=== PATIENT | female | born 1985 | race Caucasian/White ===

== ENCOUNTER 2022-12-15 10:27 | Outpatient (CLI) | payer OTHER, SELFPAY ==
--- NOTE | 2022-12-15 10:43 | XRR_ITS ---
PROCEDURE INFORMATION: Exam: XR Right Scapula Exam date and time: 12/15/2022 10:45 AM Age: 37 years old Clinical indication: Pain; Shoulder; Right; Additional info: Shoulder pain, crepitus TECHNIQUE: Imaging protocol: Radiologic exam of the Right scapula. Complete exam. COMPARISON: No relevant prior studies available. FINDINGS: Bones/joints: Normal. Soft tissues: Normal. XR/[place] [id number] IMPRESSION: No acute findings.
--- NOTE | 2022-12-15 10:43 | XRR_ITS ---
PROCEDURE INFORMATION: Exam: XR Right Shoulder Exam date and time: 12/15/2022 10:45 AM Age: 37 years old Clinical indication: Pain; Shoulder; Right; Additional info: Shoulder pain, joint crepitus TECHNIQUE: Imaging protocol: Radiologic exam of the Right shoulder. Views: 2 or more views. COMPARISON: No relevant prior studies available. FINDINGS: Bones/joints: Normal. Soft tissues: Normal. XR/XR shoulder RT min 2V* [id number] IMPRESSION: No acute findings.
== END 2022-12-15 10:28 | disposition home or self-care (01) ==
LOC: RAD 10:35
PROVIDERS: PCP Nurse Practitioner Family; Visit Provider Nurse Practitioner Family
DX: M25.511 Pain in right shoulder (principal)
CPT/HCPCS: 73010; 73030

== ENCOUNTER 2023-02-27 07:10 | Outpatient (CLI) | payer OTHER, SELFPAY ==
--- NOTE | 2023-02-27 07:00 | MR_ITS ---
WS: [id number] MRI BRACHIAL PLEXUS, noncontrast CONTRAST. COMPARISON: None Multiplanar, multisequence imaging is performed without contrast. History: Shoulder pain, RIGHT. No soft tissue masses or signal abnormalities noted along the brachial plexus. Fat surrounding the br achial plexus is well preserved. There is no nerve root compression. Again noted is the central disc protrusion described at C5-6 on the cervical MRI report. No marrow edema or fractures are identified. The beginning of scoliosis noted within the upper thorac ic spine. There is symmetry of the shoulder muscles. No marrow edema and no muscle edema or atrophy. MR/MR brachialplexus wo con [id number] IMPRESSION: 1. Negative brachioplexus MRI. 2. Central disc protrusion at C5-6 is identified, previous the described on MR I cervical spine. Please refer to that report. 3. No muscle atrophy or edema.
--- NOTE | 2023-02-27 07:45 | MR_ITS ---
WS: [id number] MRI RIGHT SHOULDER HISTORY: RIGHT shoulder pain for 10 years. COMPARISON: Radiograph 12/15/2022. TECHNIQUE: Multiplanar sequences of the shoulder joint are submitted. Very mild AC joint arthropathy. Mild narrowing of the joint space with small amount of increased T2 s ignal along the acromioclavicular ligament. There is a small amount of fluid in the subacromial and s ubdeltoid bursa. Mild thickening of the capsule surrounding the AC joint. Mild subacromial impingemen t by an osteophyte on the supraspinatus. Biceps tendon normal position. No os acromion. Distal moderate distal supraspinatus tendinopathy. Extending to the distal articular surface of the s upraspinatus tendon is a short focal tear. No additional rotator cuff tendon tear. No muscle atrophy or edema. No labral tear. MR/MR shoulder RT wo con* [id number] IMPRESSION: 1. Mild AC joint arthritis. 2. Mild subacromial impingement. 3. Moderate distal supraspinatus tendinopathy. 4. Small articular surface supraspinatus tendon tear, distal.
--- NOTE | 2023-02-27 08:30 | MR_ITS ---
WS: [id number] MRI CERVICAL SPINE NONCONTRAST HISTORY: Shoulder pain, RIGHT deltoid pain. Injury 10 years ago. COMPARISON: CT 08/29/2011 Technique: Multiplanar, multisequence noncontrast imaging of the cervical spine. Straightening of the normal cervical lordosis. Reversal of lordosis at C5-6. There is very slight increased T2 signal within the cervical cord at C5-6 related to disc protrusion and retrolisthesis. Craniocervical junction, C1 and C2 relationship, odontoid process and soft tissues are normal. C2-C3: Normal. C3-C4: Mild osteophytic ridging. No stenosis. C4-C5: Normal. C5-C6: Asymmetric mild disc space narrowing. Focal moderate central to RIGHT paracentral disc protrus ion contacting and deforming the ventral cervical cord. Resulting in moderate central stenosis. Small er osteophyte or disc protrusion in the proximal LEFT foramen. Mild LEFT foraminal stenosis. Mild fac et arthropathy. C6-C7: Normal. C7-T1: Normal. Paraspinal soft tissue are normal. MR/MR cervical spin wo con* [id number] IMPRESSION: 1. Moderate central to RIGHT paracentral disc protrusion at C5-6 with contact and deformity of the ventral cervical cord with underlying myelomalacia. 2. Moderate central stenosis at C5-6 due to the disc protrusion with a smaller osteophyte versus disc protrusion in the proximal LEFT foramen. Mild LEFT fora minor stenosis. 3. Focal myelomalacia cervical cord at C5-6.
== END 2023-02-27 07:11 | disposition home or self-care (01) ==
LOC: RAD 07:11
PROVIDERS: PCP Nurse Practitioner Family; Visit Provider Psychiatry & Neurology Neurology
DX: G54.0 Brachial plexus disorders (principal); G62.89 Other specified polyneuropathies; M48.02 Spinal stenosis, cervical region; M75.41 Impingement syndrome of right shoulder
CPT/HCPCS: 71550; 72141; 73221

== ENCOUNTER → 2023-03-04 08:52 | Outpatient (BNVA) | payer OTHER, SELFPAY | PROVIDERS: PCP Nurse Practitioner Family; Visit Provider Physician Assistant | DX: M54.12 Radiculopathy, cervical region (principal) | CPT/HCPCS: 72050 ==

== ENCOUNTER → 2023-04-13 09:24 | Outpatient (BNVA) | payer OTHER, SELFPAY | PROVIDERS: PCP Nurse Practitioner Family; Visit Provider Orthopaedic Surgery | DX: Z01.818 Encounter for other preprocedural examination (principal) | CPT/HCPCS: 36415; 80053; 85025 ==

== ENCOUNTER → 2023-04-23 09:30 | Outpatient (BNVA) | payer OTHER, SELFPAY | PROVIDERS: PCP Nurse Practitioner Family; Visit Provider Clinical Nurse Specialist Adult Health | DX: M50.222 Other cervical disc displacement at C5-C6 level (principal) | CPT/HCPCS: 81000 ==

== ENCOUNTER 2023-04-30 05:54 | Day surgery (SDC) | payer OTHER, SELFPAY ==
[2023-04-29 09:09] VITALS: BMI 18.3
[2023-04-30] VITALS (9 sets, daily range): BP systolic 104–140; BP diastolic 46–77; PULSE 52–79; RESP 16–22; TEMP 36.4–37; O2SAT 97–100
--- NOTE | 2023-04-30 | XR_ITS ---
WS: [id number] Exam: XR cervical spine 3V* [id number] Date/Time of Exam: 04/30/2023 12:00 AM Reason For Exam: C5-6 ACDF AP and lateral C-arm images of the C-spine is submitted. Images obtained for intraoperative visualiza tion. Anterior screw fixation of C5 and 6 with disc spacer noted. ET tube noted.
[2023-04-30 06:13] LABS: OR HCG Qualitative Urine Negative (Negative)
[2023-04-30] MEDS: sodium chloride 0.9% 1,000 ML 30 ML IV (06:18)
--- NOTE | 2023-04-30 06:33 | ANES.PREANE2 ---
Pre-Anesthetic Assessment Height/Weight: Height 1.83 m Weight 61.235 kg Temp Pulse Resp BP Pulse Ox O2 Del Method 98.6 F 75 17 140/68 98 Room Air 04/30/23 06:08 04/30/23 06:08 04/30/23 06:08 04/30/23 06:08 04/30/23 06:08 04/30/23 06:09 Preop Diagnosis: Cervical radiculopathy Operation Date: 04/30/23 07:00 Proposed Procedures p C5-6 Anterior Cervical Discectomy & Fusion:[id number],85780,51240,M54.12,M75.41,M50.222(Not Applicable) - Steven Carbajal, Familial anesthetic complications: none Was Beta Laura taken within 24 hours: N/A Was Clonidine taken within 24 hours: N/A Last intake: Intake Last Liquid Date 04/29/23 Last Liquid Time 21:00 Last Solid Date 04/29/23 Last Solid Time 21:00 Social No alcohol and No tobacco Exam alert, oriented x 3, clear to auscultation bilaterally and regular rate & rhythm Airway Mallampati: Class I Dentition: full Anesthetic Plan ASA status: 1 Anesthesia: General Risk of > 500 ml blood loss (7ml/kg in children): No Medications/Allergies Home Medications Medication Instructions Recorded Confirmed Last Taken Type No Known Home Medications 12/30/22 04/30/23 Unknown History Allergies Allergy/AdvReac Type Severity Reaction Status Date / Time No Known Allergies Allergy Verified 04/30/23 06:06 Current Medications Generic Name Dose Route Start Last Admin Trade Name Freq PRN Reason Stop Dose Admin Sodium Chloride 1,000 mls @ 30 mls/hr 04/30/23 06:00 04/30/23 06:18 Sodium Chloride 0.9% IV 05/01/23 05:59 30 mls/hr .Q24H RYLAN Administration PFSH Anesthesia Medical History (Updated 04/23/23 @ 09:43 by Fredy Soto NP) No pertinent past medical history Tobacco abuse, in remission Surgical History (Updated 04/23/23 @ 09:24 by Fredy Soto NP) Hx of tubal ligation Family History Denies family history of Clotting disorder Anesthesia complication Bleeding disorder Social History (Updated 04/23/23 @ 09:23 by Fredy Soto NP) Smoking and tobacco status: former smoker Quit status (tobacco): has quit using tobacco Year quit tobacco: march 2023 Former quit date comment: 10 pack year history Alcohol intake: current Alcohol intake frequency: holidays/special occasions only Substance/Drug Use: never Female Reproductive History Date of last menstrual period: 04/15/23 Data Anesthesia Cardiac Studies: No Data to Display
--- NOTE | 2023-04-30 06:39 | W.PM.OPSUD ---
Surgery/Procedure H&P Update DATE OF PROCEDURE: April 30, 2023 DATE H&P PERFORMED: 04/23/23 H&P UPDATE INFORMATION: I have reviewed H&P completed within last 30 days, I have examined patient prior to procedure and No changes to prior documentation PREOP DIAGNOSIS: Cervical radiculopathy PLANNED PROCEDURE: Operation Date: 04/30/23 07:00 Proposed Procedures p C5-6 Anterior Cervical Discectomy & Fusion:[id number],66204,79875,95914,M54.12,M75.41,M50.222(Not Applicable) - Steven Carbajal DO
[2023-04-30] MEDS: ceFAZolin 2,000 MG in sodium chloride 0.9% (plus) 50 ML 100 MG IV (07:00)
[2023-04-30] MEDS: lidocaine-epi 1% 20 mL INJ INJECTION (07:40)
--- NOTE | 2023-04-30 08:45 | P.OP_ITS ---
Operative Report Date of procedure: April 30, 2023 Pre-op diagnosis: Preop Diagnosis Cervical spondylosis with Cervical radiculopathy Post-op diagnosis: same Procedure done: 1. Anterior diskectomy C5/6 2. Insertion of cage C5/6 3. Instrumentation with anterior plate from C5-C6 4. Use of allograft Surgeon: Steven Carbajal Respiratory Care Instructor: none Estimated blood loss (mL): 20 Procedure: 1. Anterior diskectomy C5/6 2. Insertion of cage C5/6 3. Instrumentation with anterior plate from C5-C6 4. Use of allograft The patient was taken to the operating room, where he underwent general endotr acheal anesthesia without complications. He was then positioned supine on the operating table, and all areas of impingement were well padded. The arms were carefully padded and tucked at his sides. A roll was placed between the shoulder blades.. An x-ray was done to determine the appropriate level for the skin incision. The entire neck was then sterilely prepped and draped in the usual fashion. Neuromonitoring was attached prior to prepping. A transverse skin incision was made and carried down to the platysma muscle. This was then split in line with its fibers. Blunt dissection was carried down medial to the carotid sheath and lateral to the trachea and esophagus until the anterior cervical spine was visualized. A needle was placed into a disc and an x-ray was done to determine its location. The longus colli muscles were then elevated bilaterally with the electrocautery unit. Self-retaining retractors were placed deep to the longus colli muscle. Attention was brought to the C5-6 level that was confirmed on x-ray. A caspar pin was placed into the C5 vertebrae and the C6 vertebrae. The disk space was then distracted. The microscope was then brought in. A radical anterior discectomies were performed at C5/6. This included complete removal of the anterior annulus, nucleus, and posterior annulus. The posterior longitudinal ligament was removed as were the posterior osteophytes. Foraminotomies were then accomplished bilaterally. This was done using a high speed brayden, kerrison rongeurs and curretes Once all of this was accomplished, the curved currette was used to check for any residual compression. The central canal was wide open as were the foramen. A high-speed bur was used to remove the cartilaginous endplates above and below the interspace. Bleeding cancellous bone was exposed. The disc space were measured and appropriate size cage were placed sterilely onto the field. Allograft graft was packed into the cages. The cage was then placed and there was good juxtaposition against the bleeding decorticated surfaces and good distraction of each interspace. The [place] pins were removed. Bone wax was used to prevent any bleeding from occurring at the pin sites. Once the cages had been acquisition a screw was placed in the C5 vertebral body through the cage. And then another screw was placed in the C6 vertebral body through the cage. There was excellent purchase. A final x-ray was done confirming good position of the hardware and Cages. Following a final copious irrigation, there was good hemostasis and no dural leaks. The carotid pulse was strong. The wounds were then closed in layers using 2-0 Vicryl suture for the platysma muscle, 2-0 Vicryl suture for the subcutaneous tissue, and 4-0 monocryl suture in a subcuticular skin closure. Glue was placed followed by application of a sterile dressing. The drain was hooked to bulb suction. A soft collar was applied. The patient was then carefully returned to the supine position on his hospital bed where he was reversed and extubated and taken to the recovery room having tolerated the procedure well.
--- NOTE | 2023-04-30 08:47 | SUR.PHASEI ---
0832 received from or and pt asleep and easily arousable,OWUSU without any difficulty
[2023-04-30] MEDS: HYDROcodone-acetaminophen 5-325 mg Tablet 1 TAB PO (09:28)
--- NOTE | 2023-04-30 14:18 | ANE.PACU2 ---
Inpatient post-anesthesia follow up: Airway intact: Yes Vital signs: Temperature 98.0 F Pulse Rate 52 Respiratory Rate 17 Blood Pressure 121/46 Pulse Oximetry 98 Oxygen Delivery Me thod Room Air Oxygen Flow Rate Fraction of Inspir ed Oxygen Hydration adequate: Yes Nausea and vomiting: No Pain level: 1 Mental status: Baseline
== END 2023-04-30 09:49 | disposition home or self-care (01) ==
PROVIDERS: Physician Assistant; PCP Nurse Practitioner Family; Visit Provider Orthopaedic Surgery
PROC: 0RB30ZZ Excision of Cervical Vertebral Disc, Open Approach (ICD-10-PCS; CPT 22551; principal; 2023-04-30 07:00)
DX: M47.22 Other spondylosis with radiculopathy, cervical region (principal); Z87.891 Personal history of nicotine dependence
CPT/HCPCS: 20930; 22551; 22845; 22853; 72040; 76000; 81025; 84703; C1713; C9359; J0131; J0330; J0690; J1100; J2405; J2704; J3010; J3370; J3490; J7030

== ENCOUNTER → 2023-06-10 13:03 | Outpatient (BNVA) | payer OTHER, SELFPAY | PROVIDERS: PCP Nurse Practitioner Family; Visit Provider Physician Assistant | DX: Z98.1 Arthrodesis status (principal); Z47.89 Encounter for other orthopedic aftercare | CPT/HCPCS: 72040 ==

== ENCOUNTER → 2023-06-29 13:44 | Outpatient (BNVA) | payer OTHER, SELFPAY | PROVIDERS: PCP Nurse Practitioner Family; Visit Provider Student in an Organized Health Care Education/Training Program | DX: M75.41 Impingement syndrome of right shoulder (principal); M75.101 Unspecified rotator cuff tear or rupture of right shoulder, not specified as traumatic; M19.011 Primary osteoarthritis, right shoulder | CPT/HCPCS: 73030 ==

== ENCOUNTER → 2023-07-20 13:14 | Outpatient (BNVA) | payer OTHER, SELFPAY | PROVIDERS: PCP Nurse Practitioner Family; Visit Provider Physician Assistant | DX: Z98.1 Arthrodesis status; Z47.89 Encounter for other orthopedic aftercare | CPT/HCPCS: 72040 ==

== ENCOUNTER 2023-07-22 07:05 | Day surgery (SDC) | payer OTHER, SELFPAY ==
[2023-07-21 12:46] VITALS: BMI 18.3
[2023-07-22] VITALS (10 sets, daily range): BP systolic 103–132; BP diastolic 59–83; PULSE 64–100; RESP 14–17; TEMP 36.1–36.6; O2SAT 98–100
[2023-07-22 07:49] LABS: OR HCG Qualitative Urine Negative (Negative)
--- NOTE | 2023-07-22 08:21 | W.PM.OPSUD ---
Surgery/Procedure H&P Update DATE OF PROCEDURE: July 22, 2023 DATE H&P PERFORMED: 06/29/23 H&P UPDATE INFORMATION: I have reviewed H&P completed within last 30 days, I have examined patient prior to procedure and No changes to prior documentation PREOP DIAGNOSIS: Right shoulder AC arthritis, subacromial impingement, rotator cuff tear PRIMARY INDICATION FOR PROCEDURE: Right shoulder AC joint arthritis, subacromial impingement, rotator cuff tear with failure of conservative treatment PLANNED PROCEDURE: Operation Date: 07/22/23 08:50 Proposed Procedures p right shoulder diagnostic and surgical arthroscopy 55678, 13660,M75.100,M19.019,M75.41(Right) - Avtar Hoang DO s AC Joint Resection(Right) - DO francoise Castellano Subacromial Decompression(Right) - DO francoise Castellano with rotator cuff debridement versus repair(Right) - Avtar Hoang DO
[2023-07-22] MEDS: sodium chloride 0.9% 1,000 ML 30 ML IV (08:23)
[2023-07-22] MEDS: midazolam 1 mg/mL INJ 2 mL 2 MG IVP (08:24)
[2023-07-22] MEDS: ketorolac 30 mg/mL INJ IVP (08:39)
[2023-07-22] MEDS: acetaminophen 1,000 MG/100 ML PIGGYBACK 400 MG IV (08:40)
--- NOTE | 2023-07-22 08:40 | P.ANESASSM_ITS ---
Pre-Anesthetic Assessment Height/Weight: Height 1.83 m Weight 61.235 kg Temp Pulse Resp BP Pulse Ox O2 Del Method 97.5 F L 64 16 125/83 100 Room Air 07/22/23 07:36 07/22/23 07:36 07/22/23 07:36 07/22/23 07:36 07/22/23 07:36 07/22/23 07:40 Preop Diagnosis: Right shoulder AC arthritis, subacromial impingement, rotator cuff tear Operation Date: 07/22/23 08:50 Proposed Procedures p right shoulder diagnostic and surgical arthroscopy 53059, 23960,M75.100,M19.019,M75.41(Right) - Avtar Woodward, DO s AC Joint Resection(Right) - Avtar Viktor, DO s Subacromial Decompression(Right) - Avtar Woodward, DO s with rotator cuff debridement versus repair(Right) - Avtar Viktor, DO Familial anesthetic complications: None Was Beta Laura taken within 24 hours: N/A Was Clonidine taken within 24 hours: N/A Last intake: Intake Last Liquid Date 07/21/23 Last Liquid Time 22:00 Last Solid Date 07/21/23 Last Solid Time 22:00 Social No alcohol and No tobacco Exam alert, oriented x 3, clear to auscultation bilaterally and regular rate & rhythm Airway Mallampati: Class I Dentition: full Anesthetic Plan ASA status: 1 Anesthesia: General and Regional (specify below) Risk of > 500 ml blood loss (7ml/kg in children): No Medications/Allergies Home Medications Medication Instructions Recorded Confirmed Last Taken Type hydrocodone 5 mg-acetaminophen 325 1 tab PO Q6H PRN pain 5 days #20 07/22/23 Unknown Rx mg tablet tabs ondansetron 4 mg disintegrating 4 mg PO Q8H PRN nausea and 07/22/23 Unknown Rx tablet vomiting 3 days #9 tabs Allergies Allergy/AdvReac Type Severity Reaction Status Date / Time No Known Allergies Allergy Verified 07/20/23 13:25 Current Medications Generic Name Dose Route Start Last Admin Trade Name Freq PRN Reason Stop Dose Admin Sodium Chloride 1,000 mls @ 30 mls/hr 07/22/23 07:15 07/22/23 08:23 Sodium Chloride 0.9% IV 07/23/23 07:14 30 mls/hr .Q24H RYLAN Administration Midazolam HCl 2 mg 07/22/23 07:11 07/22/23 08:24 Midazolam 1 Mg/Ml Inj 2 Ml IVP 2 mg Q5M PRN Administration Preop Anxiety PFSH Anesthesia Medical History No pertinent past medical history Tobacco abuse, in remission Surgical History Hx of tubal ligation Family History Denies family history of Clotting disorder Anesthesia complication Bleeding disorder Social History Smoking and tobacco status: former smoker Quit status (tobacco): has quit using tobacco Year quit tobacco: march 2023 Former quit date comment: 10 pack year history Alcohol intake: current Alcohol intake frequency: holidays/special occasions only Substance/Drug Use: never Female Reproductive History Date of last menstrual period: 07/06/23 Data Anesthesia Cardiac Studies: No Data to Display
--- NOTE | 2023-07-22 08:41 | ANES.PROC ---
Anesthesia Procedures Procedure/Date: 07/22/23 Nerve Block ^: Nerve Block 1: Main Anesthesia: general anesthesia Time Out Performed: Yes Consent: requested by attending/covering physician, from patient, from other, risks and benefits reviewed and patient agrees to proceed Nerve block location: interscalene (R) Anesthesia monitors applied: pulse oximetry, EKG, BP cuff and oxygen Nerve block position: semi sitting Anesthetic Used: ropivicaine 0.5% (30 ml) and with decadron (4 mg) Ultrasound used to: recognize landmarks, visualize and ID brachial plexus and visualize and ID interscalene groove Nerve Stimulator Used?: No Interscalene/Femoral BLK: 2 stimuplex 22 g needle used for position and inplane approach, visualize local anesthetic spread and no vascular puncture identified Injection: neg aspiration of heme Patient Tolerated Procedure: well and no complications Complications: none
[2023-07-22] MEDS: ceFAZolin 2,000 MG in sodium chloride 0.9% (plus) 50 ML 100 MG IV (08:48)
[2023-07-22] MEDS: EPINEPHrine 1 mg/mL INJ 2 MG XX (09:43)
--- NOTE | 2023-07-22 11:02 | W.PM.BPON ---
Date of Procedure: 07/22/2023 Surgeon: Avtar Hoang DO Architectural Design Lecturer(s): None Procedure(s) performed: Right shoulder diagnostic and surgical arthroscopy, subacromial decompression, AC joint resection, biceps tenodesis, rotator cuff debridement Findings of the procedure(s): Unstable biceps tendon anchor with labral tearing, AC joint arthritis, partial articular rotator cuff tear, subacromial impingement, procedure went as expected with no complications Estimated blood loss: 10 mL Specimen(s) removed: None Post-operative diagnosis: Unstable biceps tendon anchor with labral tearing, AC joint arthritis, partial articular rotator cuff tear, subacromial impingement
--- NOTE | 2023-07-22 11:10 | P.OP_ITS ---
Operative Report Date of procedure: July 22, 2023 Surgeon: Avtar Hoang DO Procedure: Preoperative diagnosis: Right shoulder subacromial impingement, AC joint arthritis, partial rotator cuff tear, biceps tendinitis Post-op diagnosis: Right?shoulder labral and biceps tendon anchor tearing and instability Right?shoulder? partial rotator cuff tear Right?shoulder?AC joint arthritis Right?shoulder?subacromial bursitis/impingement Procedure done: Right?shoulder?diagnostic and surgical arthroscopy with biceps tenodesis Right?shoulder?diagnostic and surgical arthroscopy rotator cuff debridement Right?shoulder?diagnostic and surgical arthroscopy acromioclavicular joint resection Right?shoulder?diagnostic and surgical arthroscopy subacromial decompression (acromioplasty and bursectomy) Surgeon: Avtar Hoang DO Estimated blood loss: 10mL IV fluids: See anesthesia record Implants: Arthrex 4.75 biceps tenodesis loop n Tack kit Arthrex scorpion and suture tape Complications: None Condition: stable Disposition: same day Brief History: Patient been seen and worked up in the outpatient setting for right?shoulder?pain.? Pt had an MRI which showed findings below.? Patient's failed conservative treatment and has continued to have persistent pain and failure of response to conservative treatment. We talked about treatment options far as nonoperative and operative intervention..? We talked about risk benefits complication alternatives surgical nonsurgical treatment options.? Understanding risk of surgery he agrees to proceed with surgical intervention.? All questions have been answered at this time.? Patient elects proceed with surgery and consent obtained in office. MR/MR shoulder RT wo con* [id number] IMPRESSION: ? 1.? Mild AC joint arthritis. 2.? Mild subacromial impingement. 3.? Moderate distal supraspinatus tendinopathy. 4.? Small articular surface supraspinatus tendon tear, distal. ? Procedure: Patient seen evaluated in the preoperative holding area.? Consent reviewed and signed with patient.? Once again reviewed patient's MRI results as well as? planned surgical intervention.? Correct extremity marked.? Patient seen evaluated by anesthesia department received regional anesthesia.? Once ready for surgery was taken back to the operative suite.? Patient then subsequently underwent anesthesia per the anesthesia department was transported onto the OR table.? Patient was then placed into a lateral decubitus position with a beanbag and was appropriately secured to the bed.? All bony prominences well-padded.? Patient then had the right upper extremity was then prepped and draped in standard orthopedic fashion.? Patient received appropriate preoperative antibiotics.? Final timeout performed. The right upper extremity was then held in hanging from traction utilizing sterile technique.? Next started with standard diagnostic and surgical arthroscopy with posterior portal position introduced arthroscope into the glenohumeral joint.? Visualized the glenohumeral joint I then introduced a spinal needle within the rotator cuff interval to confirm appropriate anterior portal placement.? Once this was confirmed I then made my small incision and then introduced my arthroscopic shaver into the glenohumeral joint.? Patient had appreciable unstable biceps anchor most pronounced in the anterior and posterior aspect of the superior labrum. As well as tearing noted of the superior labrum and biceps anchor. Given there appears to be healthy intra- articular tendon plan was for an intra-articular biceps tenodesis at the s uperior portion as it enters the intertubercular groove.? Thermal wand introduced into the rotator interval.? I then release of the rotator interval to have appropriate visualization and the ability to perform biceps tenodesis.? At this point I established a purple passport cannula which was introduced.? Next I performed an Arthrex loop and tack biceps tenodesis.? Passer was then made through the tendon luggage tag stitch around and then lassoed around twice I then utilized a thermal wand to release the biceps tendon at the anchor to perform with tenotomy.? I then loaded with suture onto an Arthrex 4.75 swivel lock suture anchor.? A punch was then placed in appropriate position at the entry point into the superior portion intertubercular groove just superior to the subscapularis tendon.? Punch was then introduced to the appropriate depth.? The suture loaded on the swivel lock was then advanced held under appropriate tension and shoulder lock anchor was then advanced and had excellent fixation.? Excess suture was then cut biceps tenodesis was complete.? I then utilized a thermal wand to seal the edges of the superior labrum. Next I evaluated the subscapularis tendon which was intact and no evidence of tear. ?Next there was utilized thermal wand to see a left the labrum fraying. ? ? This point time I then visualized the glenohumeral joint.? The glenohumeral joint was found to have grade 0-1 chondromalacia throughout.? Infrapatellar pouch was free of loose bodies from viewing the posterior portal.? Next a visualized the rotator cuff superiorly and there was found to be a undersurface partial tearing of the supraspinatus tendon. I introduced the arthroscopic shaver to perform a standard rotator cuff debridement of this articular sided tear this is less than 25% the tendon and no need for rotator cuff repair. I utilized a spinal needle to echo this location.?? This completed my work within the glenohumeral joint all fluid was suctioned free of the joint.? ?Next I reintroduced the arthroscope posteriorly.? And went to the subacromial space.? I established my lateral working portal at the site of which my spinal needle was marking of the rotator cuff tear.? Thermal wand was then introduced laterally and then I subsequently performed extensive bursectomy of the subacromial space.? Patient had a large anterior bone spur.? At this point time I proceeded with my AC joint resection thermal wand was used and track to the anterior edge of the acromion and then tracked all the way to the AC joint.? Once identified the AC joint this was very arthritic in nature.? Thermal wand was placed anteriorly to establish appropriate plane for AC joint resection.? Once appropriate margins and anterior inferior and anterior capsule was released I then introduced arthroscopic shaver and a bur and performed AC joint resection of both the acromion to cope plane at the AC joint and a distal clavicle resection was then performed totaling 1 cm in size and was confirmed.? This completed my AC joint resection and I then introduced the arthroscopic shaver laterally while continuing to view posteriorly.? I then performed an acromioplasty to complete my subacromial decompression prior to fixing the rotator cuff tear.? Next the arthroscopic shaver was then used previous spinal needle spot and it was determined that there was no evidence of any full-thickness rotator cuff involvement standard bursectomy and debridement was performed of the subacromial space. The shoulder was taken through range of motion and found to be intact and in the unit with no evidence of tear on the articular side. ?I then switched the arthroscope to the lateral portal to confirm no evidence of rotator cuff tear which once again no rotator cuff tear was noted in the articular surface. ?Next I then introduced the arthroscopic shaver posteriorly to complete my subacromial decompression appropriate complaining all the way up to the lateral edge of the acromion.? This completed the surgery.? All fluid was suctioned from the?shoulder.? All instruments were removed.? The lateral incision was then closed with nylon stitches.? As well as the portal sites closed with portal nylon stitches.? Xeroform 4 x 4's ABD and tape was then applied to the right?shoulder?and was placed into a?shoulder?abduction pillow sling for rotator cuff repair.? Patient was then awakened from anesthesia and then taken back to PACU in stable condition.? Patient tolerated procedure without any issues. Disposition: Patient taken back in stable condition recovering well.? Dressings on in place clean dry and intact.? Will be nonweightbearing to the right upper extremity.? Follow bicep tenodesis protocol.? Patient placed in sling. Patient to follow-up with me in the office in 2 weeks.? Patient will receive appropriate discharge instruction as well as pain medication postoperatively.? All questions answered.? We will contact the office for any questions or concerns.
--- NOTE | 2023-07-22 12:15 | ANE.PACU2 ---
Inpatient post-anesthesia follow up: Airway intact: Yes Vital signs: Temperature 97.9 F Pulse Rate 64 Respiratory Rate 14 Blood Pressure 103/64 Pulse Oximetry 100 Oxygen Delivery Me thod Room Air Oxygen Flow Rate 6 Fraction of Inspir ed Oxygen Hydration adequate: Yes Nausea and vomiting: No Pain level: 1 Mental status: Baseline
== END 2023-07-22 12:15 | disposition home or self-care (01) ==
PROVIDERS: Anesthesiology; PCP Nurse Practitioner Family; Visit Provider Student in an Organized Health Care Education/Training Program
PROC: (CPT 29805; principal; 2023-07-22 08:40)
PROC: 0RSG0ZZ Reposition Right Acromioclavicular Joint, Open Approach (ICD-10-PCS; CPT 29822; 2023-07-22 08:40)
PROC: (CPT 29826; 2023-07-22 08:40)
PROC: (CPT 23430; 2023-07-22 08:40)
DX: M75.101 Unspecified rotator cuff tear or rupture of right shoulder, not specified as traumatic (principal); M75.21 Bicipital tendinitis, right shoulder; M25.811 Other specified joint disorders, right shoulder; M13.811 Other specified arthritis, right shoulder
CPT/HCPCS: 29822; 29824; 29826; 81025; 84703; C1713 ×2; J0131; J0171; J0690; J1100; J1885; J2250; J2371; J2405; J2704; J2710; J2795; J3010; J3490; J7030

== ENCOUNTER → 2023-10-28 13:05 | Outpatient (BNVA) | payer OTHER, SELFPAY | PROVIDERS: PCP Nurse Practitioner Family; Visit Provider Physician Assistant | DX: X58.XXXD Exposure to other specified factors, subsequent encounter (principal); S12.9XXD Fracture of neck, unspecified, subsequent encounter; Z98.1 Arthrodesis status; T84.216A Breakdown (mechanical) of internal fixation device of vertebrae, initial encounter; Z79.2 Long term (current) use of antibiotics | CPT/HCPCS: 72040 ==

== ENCOUNTER 2023-11-08 13:01 | Outpatient (CLI) | payer OTHER, SELFPAY ==
[2023-11-08 13:17] LABS: Basophils % 0.6 %; Eosinophils # 0.1 10^3/uL (0.0-0.8); Eosinophils % 1.7 %; Hematocrit 42.9 % (36-47); Lymphocytes % 31.7 %; Mean Corpuscular HGB Conc 32.6 g/dL (30-55); Mean Corpuscular Hemoglobin 29.9 pg (27-33); Mean Corpuscular Volume 91.7 fl (85-98); Mean Platelet Volume 9.3 fL (7.4-10.4); Monocytes # 0.4 10^3/uL (0.2-0.9); Monocytes % 6.2 %; Neutrophils # 3.75 10^3/uL (1.8-7.7); Neutrophils % 59.6 %; Nucleated Red Blood Cells % 0 %; Platelet Count 257 10^3/cmm (157-399); Red Blood Count 4.68 10^6/uL (3.85-5.65); Red Cell Distribution Width 13.7 % (12.1-15.1)
[2023-11-08 13:39] LABS: Alanine Aminotransferase 7 U/L (0-33); Albumin Level 4.7 g/dL (3.5-5.2); Alkaline Phosphatase 67 U/L (35-105); Anion Gap 14.4 (5-19); Aspartate Amino Transferase 13 U/L (0-32); Blood Urea Nitrogen 8 mg/dL (6-20); Calcium 9.5 mg/dL (8.5-10.5); Carbon Dioxide 28 mmol/L (22-29); Chloride 106 mmol/L (98-107); Globulin 2.8 g/dL (1.3-4.6); Glomerular Filtration Rate 93.2 mL/min (90-130); Glucose 91 mg/dL (65-115); Osmolality Calculated 296 mOsm/kg (285-295); Potassium 4.4 mmol/L (3.5-5.1); Sodium 144 mmol/L (136-145); Total Bilirubin 0.5 mg/dL (0.15-1.2); Total Protein 7.5 g/dL (6.6-8.7)
[2023-11-08 13:39] LABS: Add Urine Culture? Yes; Add Urine Microscopic? YES; Bacteria Urine 3+ /hpf; Bilirubin Urine Neg (Negative); Blood Urine 2+ (Negative); Glucose Urine UA Norm (Normal); Ketones Urine Negative (Negative); Leukocyte Esterase Urine Negative (Negative); Nitrate Urine Negative (Negative); Protein Urine Neg (Negative); RBC Urine 0-4 /hpf (0-2); Squamous Epithelial Cell Urine 0-4 /hpf (0-5); Urine Appearance Clear (CLEAR); Urine Color Yellow (Yellow); Urobilinogen Urine Norm (Negative); WBC Urine 0-4 /hpf (0-5); pH Urine 7 (5-7)
== END 2023-11-08 13:02 | disposition home or self-care (01) ==
LOC: LAB 13:01
PROVIDERS: PCP Nurse Practitioner Family; Visit Provider Orthopaedic Surgery
DX: Z98.1 Arthrodesis status (principal)
CPT/HCPCS: 80053; 81001; 85025; 87077; 87086; 87186

== ENCOUNTER 2023-11-17 15:31 | Observation (INO) | payer OTHER, SELFPAY ==
[2023-11-17] VITALS (17 sets, daily range): BP systolic 103–208; BP diastolic 53–99; PULSE 52–96; RESP 13–18; TEMP 36.1–37.5; O2SAT 97–100; BMI 17.6; BMI 19.5
--- NOTE | 2023-11-17 | XR_ITS ---
WS: [id number] INTRAOPERATIVE TECHNIQUE: 2 Spot fluoroscopic images for intraoperative purposes. FLUOROSCOPY TIME: 21.0 seconds CLINICAL INFORMATION: KAROLINE PICS COMPARISON: None. FINDINGS: Intraoperative changes ACDF C5-6. Hardware appears in good position. Endotracheal tube. IMPRESSION: Images obtained for intraoperative purposes.
[2023-11-17] MEDS: sodium chloride 0.9% 1,000 ML 30 ML IV (08:41)
[2023-11-17 08:46] LABS: OR HCG Qualitative Urine Negative (Negative)
--- NOTE | 2023-11-17 09:28 | ANES.PREANE2 ---
Pre-Anesthetic Assessment Height/Weight: Height 1.83 m Weight 58.967 kg Temp Pulse Resp BP Pulse Ox O2 Del Method 98.5 F 80 18 139/99 100 Room Air 11/17/23 08:22 11/17/23 08:22 11/17/23 08:22 11/17/23 08:22 11/17/23 08:22 11/17/23 08:29 Operation Date: 11/17/23 10:00 Proposed Procedures p ACDF w/ Cage w/ Instrumentation w/ Allograft w/ Navigation(c5-6)(Not Applicable) - Steven Carbajal, Familial anesthetic complications: None Was Beta Laura taken within 24 hours: N/A Was Clonidine taken within 24 hours: N/A Last intake: Intake Last Liquid Date 11/16/23 Last Liquid Time 23:00 Last Solid Date 11/16/23 Last Solid Time 19:00 Social No alcohol and No tobacco Exam alert, oriented x 3, clear to auscultation bilaterally and regular rate & rhythm Airway Mallampati: Class I Dentition: full History/ROS No significant complaints Anesthetic Plan ASA status: 2 Anesthesia: General Risk of > 500 ml blood loss (7ml/kg in children): No Medications/Allergies Home Medications Medication Instructions Recorded Confirmed Last Taken Type No Known Home Medications 11/17/23 11/17/23 Unknown History Allergies Allergy/AdvReac Type Severity Reaction Status Date / Time No Known Allergies Allergy Verified 11/17/23 08:17 Current Medications Generic Name Dose Route Start Last Admin Trade Name Freq PRN Reason Stop Dose Admin Sodium Chloride 1,000 mls @ 30 mls/hr 11/17/23 08:15 11/17/23 08:41 Sodium Chloride 0.9% IV 11/18/23 08:14 30 mls/hr .Q24H RYLAN Administration PFSH Anesthesia Medical History Tobacco abuse, in remission No pertinent past medical history Surgical History Hx of tubal ligation Family History Denies family history of Clotting disorder Anesthesia complication Bleeding disorder Social History Smoking and tobacco/nicotine status: former use of tobacco/nicotine Quit status (tobacco/nicotine): has quit using Year quit tobacco: march 2023 Former quit date comment: 10 pack year history Alcohol intake: current Alcohol intake frequency: holidays/special occasions only Substance/Drug Use: never Data Anesthesia Cardiac Studies: No Data to Display
--- NOTE | 2023-11-17 10:51 | W.PM.OPSUD ---
Surgery/Procedure H&P Update DATE OF PROCEDURE: November 17, 2023 DATE H&P PERFORMED: 11/11/23 H&P UPDATE INFORMATION: I have reviewed H&P completed within last 30 days, I have examined patient prior to procedure and No changes to prior documentation PLANNED PROCEDURE: Operation Date: 11/17/23 10:00 Proposed Procedures p ACDF w/ Cage w/ Instrumentation w/ Allograft w/ Navigation(c5-6)(Not Applicable) - Steven Carbajal DO
[2023-11-17] MEDS: ceFAZolin 2,000 MG in sodium chloride 0.9% (plus) 50 ML 100 MG IV ×2 (11:20→18:20)
[2023-11-17] MEDS: lidocaine-epi 2% 20 mL INJ INJECTION (13:21)
--- NOTE | 2023-11-17 13:41 | PM.OP ---
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 Anterior diskectomy C5/6 2. Insertion of cage C5/6 3. Instrumentation with anterior plate from C6-C7 4. Use of allograft 5. Removal of deep hardware from cervical spine Surgeon: Steven Carbajal DO Estimated blood loss (mL): 100 Procedure: 1. Anterior diskectomy C5/6 2. Insertion of cage C5/6 3. Instrumentation with anterior plate from C6-C7 4. Use of allograft 5. Removal of deep hardware from cervical spine The patient was taken to the operating room, where he underwent general endotracheal anesthesia without complications. He was then positioned supine on the operating table, and all areas of impingement were well padded. The arms were carefully padded and tucked at his sides. A roll was placed between the shoulder blades.. An x-ray was done to determine the appropriate level for the skin incision. The entire neck was then sterilely prepped and draped in the usual fashion. Neuromonitoring was attached prior to prepping. A transverse skin incision was made and carried down to the platysma muscle. This was then split in line with its fibers. Blunt dissection was carried down medial to the carotid sheath and lateral to the trachea and esophagus until the anterior cervical spine was visualized. A needle was placed into a disc and an x-ray was done to determine its location. The longus colli muscles were then elevated bilaterally with the electrocautery unit. Self-retaining retractors were placed deep to the longus colli muscle. The screw was identified in the scale of cage was exposed. The 2 screws in stable cage were removed. Then the cage was removed. Attention was brought to the C5/6 level that was confirmed on x-ray. A caspar pin was placed into the C5 vertebrae and the C6 vertebrae. The disk space was then distracted. The microscope was then brought in. A radical anterior discectomies were performed at []. This included complete removal of the anterior annulus, nucleus, and posterior annulus. The posterior longitudinal ligament was removed as were the posterior osteophytes. Foraminotomies were then accomplished bilaterally. This was done using a high speed brayden, kerrison rongeurs and curretes Once all of this was accomplished, the curved currette was used to check for any residual compression. The central canal was wide open as were the foramen. Scar tissue was removed and bone was drilled back and drill was used to bring down to bleeding tissue both superiorly and inferiorly. A high-speed bur was used to remove the cartilaginous endplates above and below the interspace. Bleeding cancellous bone was exposed. The disc space were measured and appropriate size cage were placed sterilely onto the field. Allograft graft was packed into the cages. The cage was then placed and there was good juxtaposition against the bleeding decorticated surfaces and good distraction of each interspace. The Natoma pins were removed. Bone wax was used to prevent any bleeding from occurring at the pin sites. The appropriate size anterior cervical locking plate was chosen and bent into gentle lordosis. Two screws were then placed into each of the vertebral bodies at C5 and C6. There was excellent purchase. A final x-ray was done confirming good position of the hardware and Cages. The locking screws were then applied, also with excellent purchase. Following a final copious irrigation, there was good hemostasis and no dural leaks. The carotid pulse was strong. The wounds were then closed in layers using 2-0 Vicryl suture for the platysma muscle, 2-0 Vicryl suture for the subcutaneous tissue, and 4-0 monocryl suture in a subcuticular skin closure. Glue was placed followed by application of a sterile dressing. The drain was hooked to bulb suction. A soft collar was applied. The patient was then carefully returned to the supine position on his hospital bed where he was reversed and extubated and taken to the recovery room having tolerated the procedure well.
--- NOTE | 2023-11-17 14:40 | ANE.PACU2 ---
Inpatient post-anesthesia follow up: Airway intact: Yes Vital signs: Temperature 97.8 F Pulse Rate 58 Respiratory Rate 18 Blood Pressure 125/82 Pulse Oximetry 97 Oxygen Delivery Me thod Room Air Oxygen Flow Rate 8 Fraction of Inspir ed Oxygen Hydration adequate: Yes Nausea and vomiting: No Pain level: 1 Mental status: Baseline
[2023-11-17] MEDS: cetylpyridinium Lozenge 1 EACH MUCOUS MEM (14:53)
[2023-11-17] MEDS: docusate sodium 100 mg Capsule PO (18:23)
[2023-11-17] MEDS: acetaminophen 325 mg Tablet 650 MG PO (20:13)
[2023-11-18] VITALS: BP 114/63; PULSE 87; RESP 17; TEMP 37.1; O2SAT 95
[2023-11-18] MEDS: lactated ringers 1,000 ML 90 ML IV (00:23)
[2023-11-18] MEDS: ceFAZolin 2,000 MG in sodium chloride 0.9% (plus) 50 ML 100 MG IV (02:56)
[2023-11-18 04:00] VITALS: BP 119/72; PULSE 64; RESP 18; TEMP 36.7; O2SAT 96
[2023-11-18 06:26] VITALS: PULSE 58
--- NOTE | 2023-11-18 06:38 | PM.DCS ---
Discharge Providers Date of Admission: 11/17/23 15:31 Date of Discharge: November 18, 2023 Attending Provider at Admission: Steven Carbajal DO Attending Provider at Discharge: Steven Carbajal DO Primary Care Provider: ROBYN Ewing Reason for Visit Reason for Visit: [id number] Physical Exam Narrative: Swelling improved from yesterday. Pain controlled. At this point patient will be discharged we will have them pull the drain drain has minimal drainage. Urinary Catheter Management: Sorto: Cath Placed During This Visit: yes, but has since been removed by the nurse Date Urinary Catheter Removed: 11/17/23 Time Urinary Catheter Discontinued: 13:39 Discharge Data Studies Completed and Pending Completed Studies During Hospitalization Category Date Time Status XR cervical spine 3V* [id number] Routine Exams 11/17/23 Completed Laboratory Results Urine HCG, Qual Negative (Negative) 11/17/23 08:44 Vitals Last Vital Signs Temp 98.0 F 11/18/23 04:00 Pulse 58 L 11/18/23 06:26 Resp 18 11/18/23 04:00 BP 119/72 11/18/23 04:00 Pulse Ox 96 11/18/23 04:00 O2 Del Method Room Air 11/18/23 04:00 O2 Flow Rate 8 11/17/23 13:49 Discharge Plan Discharge Patient Disposition: Home Condition: Stable Prescriptions: New hydrocodone-acetaminophen 5-325 mg tablet 1 - 2 tab PO .Q4-6H Qty: 40 0RF Discharge Orders: Discharge Order (Routine); Ordered 11/18/23 Ordered By: Steven Carbajal Discharge Diet: Advance as tolerated Discharge Activity: Limit activity as instructed Patient Instructions: Opioid Safety Activity Restrictions/Additional Instructions: Thank you for choosing [facility] for your care! The following is a list of instructions, from your provider, to follow upon your discharge to ensure you have the optimal recovery from your recent injury or surgery. Anterior Cervical Discectomy and Fusion: What to Expect at Home Your Recovery Follow-up care is a davila part of your treatment and safety. Be sure to make and go to all appointments, and call your doctor if you are having problems. If you do not already have a follow-up appointment made, call office in the next 1-3 days to make follow up appointment for 2 weeks at [phone]. It is also a good idea to know your test results and keep a list of the medicines you take. You can expect your neck to feel stiff or sore after surgery. This should improve in the weeks after surgery. But it may take 4 to 6 months for you to get better completely. You may have trouble sitting or standing in one position for very long and may need pain medicine in the weeks after your surgery. It may take 4 to 6 weeks to get back to your usual activities, but it may depend on what kind of surgery you had. Your throat will feel sore and it may be difficult to swallow for the first 3 days after your surgery. As long as you can get liquids down without difficulty, this should slowly improve, otherwise call our office or seek medical attention if it becomes increasingly difficult to get anything down including liquids. Avoid hot liquids for first 3-5 days. Soothing foods/liquids such as jello, pudding, and luke warm soups are recommended until swallowing improves. Staying elevated will also help, it's advised you keep propped up at while sleeping to help reduce the swelling. You may use an ice pack directly on your incision or around it on the front of your neck, using a cloth to protect your skin; and a heating pad to the back of your neck as needed. Do not use over the counter anti-inflammatory medications (Ibuprofen, Motrin, Aleve, Advil, etc) Taking these meds after having a fusion can delay fusion rates, we recommend you avoid them for the first 3 months after your surgery[address] Dr. Carbajal may advise you to work with a physical therapist to strengthen the muscles around your neck and back - this will be discussed at your follow - up appointments. The pain or numbness you were having in your arms before surgery should get better or go away completely. This care sheet gives you a general idea about how long it will take for you to recover. But each person recovers at a different pace. Follow the steps below to get better as quickly as possible. How can you care for yourself at home? Activity ? Rest when you feel tired. Getting enough sleep will help you recover. ? Try to walk each day. Start by walking a little more than you did the day before. Bit by bit, increase the amount you walk. Walking boosts blood flow and helps prevent pneumonia and constipation. Walking may also decrease your muscle soreness after surgery. ? No lifting anything that is more that 5 pounds. This may include heavy grocery bags and milk containers, a heavy briefcase or backpack, cat litter or dog food bags, a child, or a vacuum venetian blind cleaner and repairer. ? Avoid strenuous activities, such as bicycle riding, jogging, weightlifting, or aerobic exercise, until your doctor says it is okay. ? Do not drive until your follow-up visit after your surgery, or until your doctor says it isokay. ? Avoid taking long car trips for 2 to 4 weeks after surgery. Your neck may become tired and painful from sitting too long in one position. ? You will probably need to take 4 to 6 weeks off from work. It depends on the type of work you do and how you feel. ? You may have sex as soon as you feel able, but avoid positions that put stress on your neck or cause pain. Diet ? You can eat your normal diet. If your stomach is upset, try bland, low-fat foods like plain rice, broiled chicken, toast, and yogurt ? Drink plenty of fluids. If you have kidney, heart, or liver disease and have to limit fluids, talk with your doctor before you increase the amount of fluids you drink. ? You may notice that your bowel movements are not regular right after your surgery. This is common. Try to avoid constipation and straining with bowel movements. You may want to take a fiber supplement every day. If you have not had a bowel movement after a couple of days, ask your doctor about taking a mild laxative. Medicines ? Take pain medicines exactly as directed. 1. If Dr. Carbajal gave you a prescription medicine for pain, take lt as prescribed. 2. Do not take two or more pain medicines at the same time unless the doctor told you to. Many pain medicines have acetaminophen, which is Tylenol. Too much acetaminophen {Tylenol) can be harmful. 3. If you think your pain pill is making you sick to your stomach: 4. Take your pills after meals (unless your doctor has told you not to). 5. Ask your Dr. for a different pain pill. Incisioncare ? Remove your dressing 48hours after your surgery. Ok to shower and get the incision wet. Do not overtly wash your incision. When done, pad dry, leave open to air thereafter. Avoid creams and ointments directly on your incision. ? Your sutures in the incision will dissolve and fall out on their own. ? Keep the area clean and dry. You may cover it with a gauze bandage if it weeps or rubs against clothing; if you choose to do this, change the dressing everyday. Other instructions ? Use a heating pad, hot water bottle, or gentle massage on your back to reduce stiffness. Avoid putting heat on your incision When should you call for help? ? Call 911 anytime you think you may need emergency care. For example, call if: ? You pass out (lose consciousness). ? You have sudden chest pain and shortness of breath, or you cough upblood. ? You cannot swallow. ? You have severe pain in your neck or back. ? Call your Dr. or seek immediate medical care if: ? You have pain that does not get better after you take pain pills. ? You have loose stitches, or your incision comes open. ? You have blood or fluid draining from the incision. ? You have signs of infection, such as: 1. Increased pain, swelling, warmth, or redness. 2. Red streaks leading from the site. 3. Pus draining from the site. 4. Swollen lymph nodes in your neck or armpits. 5. A fever. ? You have severe pain in your arms. ? You have new or increased weakness or numbness in your arms. ? Watch closely for any changes in your health, and be sure to contact your doctor if: ? You do not have a bowel movement after taking a laxative. Discharge Attestations Time Spent in Discharge Care*: less than 30 min Quality Metrics Clinical Quality Measures [ No reported AMI, CVA or VTE this stay] Coding Level of Care Code Acute Code for Chg Fwjamir
[2023-11-18] MEDS: acetaminophen 325 mg Tablet 650 MG PO (10:23)
--- NOTE | 2023-11-18 10:35 | PC.NURSE ---
Patient offered last does of IV antibiotic's at this time. Patient refused stating that the nurse down stairs said that she would not have to stay here for it if she did not want to. Hemovac removed intact. Patient tolerated well. 50 mls out in Hemovac. Dressing completely changed to a new Silvalone dressing.
--- NOTE | 2023-11-18 10:50 | PC.NURSE ---
Patient is A&Ox3. Respirations even and non-labored on room air. Discharge instructions reviewed with patient. Patient verbalized understanding of discharge instructions, pain medications and follow up appointments. Patient pushed to private car.
[2023-11-18 12:28] VITALS: PULSE 60
== END 2023-11-18 10:50 | disposition home or self-care (01) ==
LOC: MEDSURG 15:33
PROVIDERS: Admitting Provider Orthopaedic Surgery; PCP Nurse Practitioner Family; Visit Provider Orthopaedic Surgery
PROC: 0RB30ZZ Excision of Cervical Vertebral Disc, Open Approach (ICD-10-PCS; CPT 22551; principal; 2023-11-17 09:50)
DX: M96.0 Pseudarthrosis after fusion or arthrodesis (principal); Z87.891 Personal history of nicotine dependence
CPT/HCPCS: 20930; 22551; 22845; 22853; 72040; 76000; 81025; 84703; 97161; C1713; C1763; C9359; G0378; J0330; J0690; J1100; J2250; J2405; J2704; J2710; J3010; J3490; J7030; J7120

== ENCOUNTER → 2023-12-31 10:42 | Outpatient (BNVA) | payer OTHER, SELFPAY | PROVIDERS: PCP Nurse Practitioner Family; Visit Provider Orthopaedic Surgery | DX: Z98.1 Arthrodesis status (principal) | CPT/HCPCS: 72040 ==

== ENCOUNTER → 2024-02-10 15:30 | Outpatient (BNVA) | payer OTHER, SELFPAY | PROVIDERS: PCP Nurse Practitioner Family; Visit Provider Orthopaedic Surgery | DX: Z98.1 Arthrodesis status (principal) | CPT/HCPCS: 72040 ==